=== PATIENT | female | born 1985 | race Caucasian/White ===

== ENCOUNTER 2017-03-25 18:04 | Emergency (ER) | payer OTHER ==
[2017-03-25 18:15] VITALS: BP 133/88
--- NOTE | 2017-03-25 18:15 | UC ---
Skin Complaint HPI - HPI Summary HPI Summary: 31 YEAR OLD FEMALE PRESENTS WITH COMPLAINS OF AN ONGOING RIGHT AXILLA ABSCESS. ON A SIDE NOT SHE HAS HAD IT LANCED BEFORE. - History of Current Complaint Chief Complaint: UCSkin Time Seen by Provider: 03/25/17 18:15 Stated Complaint: CYST UNDER ARM Hx Obtained From: Patient Hx Last Menstrual Period: Onset/Duration: Sudden Onset Skin Exposure Onset/Duration: Weeks Ago Onset Severity: Moderate Current Severity: Moderate Pain Scale Used: 0-10 Numeric - 5 Location: Diffuse Aggravating: Nothing Alleviating: Nothing - Allergy/Home Medications Allergies/Adverse Reactions: Allergies Allergy/AdvReac Type Severity Reaction Status Date / Time No Known Allergies Allergy Verified 08/25/15 13:54 Home Medications: Home Medications Doxycycline Hyclate [[id number] [id number]] 03/25/17 [History] Review of Systems Constitutional: Negative Skin: Other - RIGHT AXILLA CYST Eyes: Negative ENT: Negative Respiratory: Negative Cardiovascular: Negative Gastrointestinal: Negative Genitourinary: Negative Motor: Negative Neurovascular: Negative Musculoskeletal: Negative Neurological: Negative Psychological: Negative All Other Systems Reviewed And Are Negative: Yes PMH/Surg Hx/FS Hx/Imm Hx Previously Healthy: Yes - Surgical History Surgical History: Yes Surgery Procedure, Year, and Place: breast reduction, bilat lower wisdom teeth - Family History Known Family History: Positive: Hypertension - Social History Alcohol Use: Weekly Substance Use Type: None Smoking Status (MU): Former Smoker Type: Cigarettes Amount Used/How Often: "On occasion" Physical Exam Triage Information Reviewed: Yes Vital Signs: Initial Vital Signs Temp 36.9 C 03/25/17 18:08 Pulse 87 03/25/17 18:08 Resp 16 03/25/17 18:08 BP 133/88 03/25/17 18:08 Pulse Ox 100 03/25/17 18:08 Vital Signs Reviewed: Yes Eye Exam: Normal ENT Exam: Normal Dental Exam: Normal Neck exam: Normal Neck: Positive: 1 Respiratory Exam: Normal Cardiovascular Exam: Normal Abdominal Exam: Normal Musculoskeletal Exam: Normal Neurological Exam: Normal Psychological Exam: Normal Skin: Positive: Other - RIGHT AXILLA CYSTS Course/Dx - Diagnoses Provider Diagnoses: RIGHT AXILLA CYST Discharge - Discharge Plan Condition: Stable Disposition: HOME Prescriptions: DOXYcycline CAP(*) [DOXYcycline 100MG CAP(*)] 100 mg PO BID #14 cap Patient Education Materials: Abscess (ED) Referrals: Nicol Morton MD [Primary Care Provider] - If Needed
[2017-03-25] MEDS ORDERED: Lidocaine 1% MPF* 2 ML VIAL ONE (18:30)
[2017-03-25] MEDS ORDERED: Lidocaine 1% MPF* 2 ML VIAL INJ ONE (18:31)
[2017-03-25] MEDS ORDERED: Acetaminophen TAB* 325 MG PO ONE (18:31)
== END 2017-03-25 18:52 | disposition home or self-care (01) ==
LOC: UCEAST 18:04
DX: L72.9 Follicular cyst of the skin and subcutaneous tissue, unspecified (principal)
CPT/HCPCS: 10060; 99212; A9270-GY; G0463

== ENCOUNTER 2017-06-21 11:47 | Emergency (ER) | payer OTHER ==
[2017-06-21 11:57] VITALS: BP 133/76
[2017-06-21] MEDS ORDERED: Cyclobenzaprine TAB* 10 MG PO ONE (11:59)
--- NOTE | 2017-06-21 12:16 | UC ---
Shoulder Pain HPI - HPI Summary HPI Summary: Had fall on stairs about 2 weeks ago; didn't have much pain for about 2 days, then developed achiness in R neck and R shoulder. Symptoms would wax and wane, buy nothing was severe until yesterday. There was no new injury, but now there is pain on top of R shoulder, beside/behind R shoulder blade, and all through neck muscles. Occ minimal tingling in R hand, denies weakness or pain in R arm or hand. - History of Current Complaint Chief Complaint: UCUpperExtremity Stated Complaint: SHOULDER INJURY Time Seen by Provider: 06/21/17 11:54 Hx Obtained From: Patient Hx Last Menstrual Period: 06/18/17 ?: No Onset/Duration: Gradual Onset, Lasting Weeks Timing: Constant Severity Initially: Mild Severity Currently: Severe Character: Dull, Aching, Spasmodic, Stiffness Aggravating Factor(s): Movement Alleviating Factor(s): Nothing Related History: Dominant Hand Right - Allergies/Home Medications Allergies/Adverse Reactions: Allergies Allergy/AdvReac Type Severity Reaction Status Date / Time No Known Allergies Allergy Verified 06/21/17 11:57 Home Medications: Home Medications Hydrocodone-Acetaminophen [Hydrocodone Bitartrate/AC 2.5-325 mg] 1 tab PO Q6HR PRN 06/21/17 [History Confirmed 06/21/17] PMH/Surg Hx/FS Hx/Imm Hx Previously Healthy: Yes - Surgical History Surgical History: Yes Surgery Procedure, Year, and Place: breast reduction, bilat lower wisdom teeth - Family History Known Family History: Positive: Hypertension - Social History Occupation: Employed Full-time - salesperson [employer] Alcohol Use: Occasionally Substance Use Type: None Smoking Status (MU): Current Some Day Smoker Type: Cigarettes Amount Used/How Often: Socially - Immunization History Most Recent Influenza Vaccination: Not UTD Review of Systems Constitutional: Negative Skin: Negative Eyes: Negative ENT: Negative Respiratory: Negative Cardiovascular: Negative Gastrointestinal: Negative Genitourinary: Negative Motor: Negative Neurovascular: Negative Musculoskeletal: Arthralgia, Decreased ROM Neurological: Headache Psychological: Negative Is Patient Immunocompromised?: No All Other Systems Reviewed And Are Negative: Yes Physical Exam Triage Information Reviewed: Yes Appearance: Well-Nourished, Pain Distress - moderate -- grimacing, body positioning Vital Signs: Initial Vital Signs Temp 98.8 F 06/21/17 11:50 Pulse 73 06/21/17 11:50 Resp 16 06/21/17 11:50 BP 133/76 06/21/17 11:50 Pulse Ox 100 06/21/17 11:50 Vital Signs Reviewed: Yes Eye Exam: Normal Eyes: Positive: Conjunctiva Clear ENT Exam: Normal ENT: Positive: Normal ENT inspection, Hearing grossly normal, Pharynx normal, TM dull Dental Exam: Normal Neck: Positive: Nuchal Rigidity - pain diffuse through neck muscles Respiratory Exam: Normal Respiratory: Positive: Chest non-tender, Lungs clear, Normal breath sounds, No respiratory distress, No accessory muscle use Cardiovascular Exam: Normal Cardiovascular: Positive: RRR, No Murmur Musculoskeletal: Positive: ROM Limited @ - R shoulder pain with extension and abduction aroun d90 degrees, Other: - palpable muscle spasm in muscles around R scapula Neurological Exam: Normal Neurological: Positive: Alert, Muscle Tone Normal Psychological Exam: Normal Skin Exam: Normal Diagnostics - Radiology No standard instances Xray Interpretation: No Acute Changes - C-spine and R shoulder Radiology Interpretation Completed By: Radiologist Shoulder Course/Dx - Differential Dx/Diagnosis Provider Diagnoses: cervical strain. multiple muscle spasms. R trapezius strain Discharge - Discharge Plan Condition: Stable Disposition: HOME Prescriptions: Cyclobenzaprine TAB* [Flexeril 10 MG TAB*] 10 mg PO TID PRN #30 tab PRN Reason: Pain Hydrocodone-Acetaminophen [Manor 5-325 mg] 1 tab PO QID #15 tab MDD 4 Ibuprofen TAB* [Motrin TAB* 600 MG] 600 mg PO Q8H PRN #30 tab PRN Reason: Pain Patient Education Materials: Cervical Strain (ED), Shoulder Pain (ED) Forms: *Work Release Referrals: Nicol Morton MD [Primary Care Provider] - Additional Instructions: While I believe your pain and muscle spasms will get better with time and rest, physical therapy should help with recovery and preventing future injuries.
--- NOTE | 2017-06-21 12:35 | RAD ---
INDICATION: Cervical collar clearance after a fall 2 weeks earlier COMPARISON: None. TECHNIQUE: Lateral view only of the cervical spine was obtained. FINDINGS: C1-C7 are visualized. The vertebra are in normal alignment. No prevertebral soft tissue swelling or fracture is seen. There is mild loss of intervertebral disc height at C4/C5 and C5/C6. IMPRESSION: No radiographic evidence of fracture or subluxation. If the patient's symptoms persist, follow-up imaging is recommended.
[2017-06-21] MEDS ORDERED: Ketorolac INJ* 30 MG/ML 1 ML VIAL IM ONE (12:46)
--- NOTE | 2017-06-21 13:16 | RAD ---
INDICATION: Right shoulder pain after a fall 2 weeks earlier COMPARISON: None. TECHNIQUE: 4 views of the right shoulder were obtained. FINDINGS: The adequately corticated bones are in normal alignment. Joint spaces appear maintained. No fracture, dislocation or focal bony abnormality is seen. IMPRESSION: Normal radiograph of the right shoulder. If the patient's symptoms persist, follow-up imaging is recommended.
--- NOTE | 2017-06-21 13:18 | RAD ---
INDICATION: Neck pain 2 weeks after a fall COMPARISON: None. TECHNIQUE: views of the cervical spine were obtained. FINDINGS: C1-C7 are visualized. The vertebra are in normal alignment. No prevertebral soft tissue swelling or fracture is seen. Mild degenerative changes include loss of intervertebral disc height at C4/C5 and C5/C6. IMPRESSION: Mild degenerative changes as noted above. If the patient's symptoms persist, follow-up imaging is recommended.
== END 2017-06-21 13:46 | disposition home or self-care (01) ==
LOC: UCEAST 11:47
DX: M62.838 Other muscle spasm (principal); S16.1XXA Strain of muscle, fascia and tendon at neck level, initial encounter; S46.911A Strain of unspecified muscle, fascia and tendon at shoulder and upper arm level, right arm, initial encounter; W10.9XXA Fall (on) (from) unspecified stairs and steps, initial encounter; Y93.9 Activity, unspecified; Y92.9 Unspecified place or not applicable; Y99.9 Unspecified external cause status; Z72.0 Tobacco use
CPT/HCPCS: 72020; 72050; 99212; A9270-GY; G0463; J1885